=== PATIENT | male | born 1945 | race Caucasian/White ===

== ENCOUNTER → 2018-07-29 | Outpatient (CLI) | payer MEDICARE ==
[~2018-07-29] MED LIST: Aspir 8181 MG; Crestor40 MG; Nexium40 MG; QVAR REDIHALE10.6 G1; UBID10; ZESTORETIC 20-121 EA
[2018-07-29 14:57] LABS: BASOPHILS ABSOLUTE AUTO 0.04 K/mm3 (0.00-0.23); BASOPHILS PERCENT AUTO 1 % (0-2); EOSINOPHILS ABSOLUTE AUTO 0.31 K/mm3 (0.00-0.68); EOSINOPHILS PERCENT AUTO 5 % (0-6); Hematocrit 41.5 % (37.0-53.0); Hemoglobin 14.2 g/dL (13.5-17.5); IMMATURE GRAN ABSOLUTE AUTO 0.02 K/mm3 (0.00-0.10); IMMATURE GRAN PERCENT AUTO 0 % (0-1); LYMPHOCYTES ABSOLUTE AUTO 0.79 K/mm3 (0.84-5.20); LYMPHOCYTES PERCENT AUTO 11 % (21-46); MONOCYTES ABSOLUTE AUTO 0.61 K/mm3 (0.16-1.47); MONOCYTES PERCENT AUTO 9 % (4-13); Mean Corpuscular HGB 32.9 pg (26.0-34.0); Mean Corpuscular HGB Conc 34.2 g/dL (31.5-36.5); Mean Corpuscular Volume 96 fL (80-100); Mean Platelet Volume 9.4 fL (9.1-12.4); NEUTROPHILS ABSOLUTE AUTO 5.19 K/mm3 (1.96-9.15); NEUTROPHILS PERCENT AUTO 74 % (41-73); Platelet Count 110 K/mm3 (150-400); RDW Coefficient Variation 13.2 % (11.7-14.2); RDW Standard Deviation 47.7 fL (35.1-46.3); Red Blood Cell Count 4.31 M/mm3 (4.30-5.90); White Blood Cell Count 6.96 K/mm3 (4.00-11.30)
[2018-07-29 15:12] LABS: Alanine Aminotransfer (ALT/SGP 48 U/L (12-78); Albumin, Blood 3.4 g/dL (3.4-5.0); Albumin/Globulin Ratio 0.8 (0.8-1.8); Alk Phos 123 U/L (40-126); Anion Gap 11 mmol/L (6-16); Aspartate Aminotrans (AST/SGOT 30 U/L (12-37); Blood Urea Nitrogen 22 mg/dL (8-24); Bun/Creatinine Ratio 19.8 (12.0-20.0); CO2, Blood 26 mmol/L (21-32); Calcium, Blood 8.9 mg/dL (8.5-10.1); Chloride, Blood 99 mmol/L (98-108); Creatinine, Blood 1.11 mg/dL (0.60-1.20); Globulin, Blood 4.1 g/dL (2.2-4.0); Glomerular Filtration Rate >60 (60-); Glucose, Blood 162 mg/dL (70-99); Potassium, Blood 4.2 mmol/L (3.5-5.5); Sodium, Blood 136 mmol/L (136-145); Total Protein, Blood 7.5 g/dL (6.4-8.2); Troponin I 0.121 ng/mL (0.000-0.040)
== END ==
LOC: LAB SHORT 14:54 → LAB EV 14:54
PROVIDERS: Emergency Medicine
DX: R07.9 Chest pain, unspecified (principal)
CPT/HCPCS: 80053; 84484; 85025

== ENCOUNTER → 2018-08-08 | Outpatient (CLI) | payer MEDICARE | LOC: LAB EV 11:25 → LAB SHORT 11:25 | DX: R07.9 Chest pain, unspecified (principal) | CPT/HCPCS: 84484 ==

== ENCOUNTER 2021-09-08 09:18 | Day surgery (SDC) | payer MEDICARE ==
[~2021-09-08] VITALS: Ht 175.3 cm; Wt 101.8 kg
[~2021-09-08 09:18] MED LIST changes: +ALBU90OI INH; -Aspir 8181 MG; +Aspir 8181 MG PO; -Crestor40 MG; +Crestor40 MG PO; +FENO54 PO; -Nexium40 MG; +Nexium40 MG PO; -QVAR REDIHALE10.6 G1; +QVAR REDIHALE10.6 G2 INH; +TURMERIC CURCU1 EACH PO; -UBID10; +UBID10 PO; -ZESTORETIC 20-121 EA; +ZESTORETIC 20-121 EA PO; +[UNRECOGNIZED DRUG - OTHER] PO
--- NOTE | 2021-09-08 10:37 | NUR ---
Ambulatory in Day Surgery. History, Chart, Medications and Allergies reviewed before start of procedure. Lungs clear T/O to Auscultation. Patient confirms NPO status and agrees with scheduled surgery. Pre-Op teaching done. Pt verbalizes understanding.
--- NOTE | 2021-09-08 15:55 | NUR ---
PT ARRIVED TO THE ROOM AT APPROXIMATELY 1520 FROM PACU. PT IS ALERT AND ORIENTED. PT DENIES PAIN BUT STILL REPORTS NUMBNESS TO BLE. HE IS STARTING TO WIGGLE HIS TOES WEAKLY. PT IS TOLERATING PO. PT'S S/O AT THE BEDSIDE FOR SUPPORT. R KNEE DRESSING C/D/I. VSS.
--- NOTE | 2021-09-08 17:07 | NUR ---
SHIFT SUMMARY PT IS POD#0 FROM R TKA. PT DENIES NEED FOR PAIN MEDICATION. PAIN MANAGED WITH TYLENOL AND TORADOL. PT IS TOLERATING PO. WAITING FOR PT VOID. PLAN TO GET PT OOB FOR DINNER IF POSSIBLE. WILL CONTINUE TO MONITOR.
--- NOTE | 2021-09-08 19:05 | NUR ---
BLADDER SCAN AND STRAIGHT CATH PT WAS UNABLE TO VOID AFTER 2 ATTEMPTS. BLADDER SCAN SHOWED 478ML IN HIS BLADDER. STRAIGHT CATH EMPTIED 700ML FROM PT'S BLADDER. SCANT BLOOD PRESENT IN CATHETER WHEN IT WAS WITHDRAWN. PT TOLERATED WELL. STERILE TECHNIQUE MAINTAINED AND PT DENIED ALLERGY TO IODINE PRIOR TO STRAIGHT CATH.
--- NOTE | 2021-09-09 04:19 | NUR ---
SHIFT SUMMARY: PT. AOX4, AMBULATES TO THE BATHROOM WITH WALKER & GB ON SBA. R KNEE INCISION WITH ACEWRAP ON, POLAR PACK PLACED. C/O PAIN MEDICATED PER EMAR.NO BLOOD NOTED IN URINE. USED CPAP AT NIGHT, O2 SAT WNL, BIOX AT BEDSIDE.NO ACUTE CHANGES NOTED, WILL CONTINUE TO MONITOR.
[2021-09-09 04:37] LABS: BASOPHILS ABSOLUTE AUTO 0.01 K/mm3 (0.00-0.23); BASOPHILS PERCENT AUTO 0 % (0-2); EOSINOPHILS ABSOLUTE AUTO 0.01 K/mm3 (0.00-0.68); EOSINOPHILS PERCENT AUTO 0 % (0-6); Hematocrit 38.4 % (37.0-53.0); IMMATURE GRAN ABSOLUTE AUTO 0.02 K/mm3 (0.00-0.10); IMMATURE GRAN PERCENT AUTO 0 % (0-1); LYMPHOCYTES ABSOLUTE AUTO 0.76 K/mm3 (0.84-5.20); LYMPHOCYTES PERCENT AUTO 11 % (21-46); MONOCYTES ABSOLUTE AUTO 0.54 K/mm3 (0.16-1.47); MONOCYTES PERCENT AUTO 8 % (4-13); Mean Corpuscular HGB 32.8 pg (26.0-34.0); Mean Corpuscular HGB Conc 33.9 g/dL (31.5-36.5); Mean Corpuscular Volume 97 fL (80-100); Mean Platelet Volume 9.3 fL (9.1-12.4); NEUTROPHILS ABSOLUTE AUTO 5.79 K/mm3 (1.96-9.15); NEUTROPHILS PERCENT AUTO 81 % (41-73); Platelet Count 141 K/mm3 (150-400); RDW Standard Deviation 46.6 fL (35.1-46.3); Red Blood Cell Count 3.96 M/mm3 (4.30-5.90); White Blood Cell Count 7.13 K/mm3 (4.00-11.30)
[2021-09-09 05:03] LABS: Anion Gap 8 mmol/L (6-16); Blood Urea Nitrogen 25 mg/dL (8-24); Bun/Creatinine Ratio 24.8 (12.0-20.0); CO2, Blood 23 mmol/L (21-32); Calcium, Blood 8.8 mg/dL (8.5-10.1); Chloride, Blood 106 mmol/L (98-108); Creatinine, Blood 1.01 mg/dL (0.60-1.20); Glomerular Filtration Rate >60 (60-); Glucose, Blood 161 mg/dL (70-99); Sodium, Blood 137 mmol/L (136-145)
[2021-09-09] MEDS ORDERED: Percocet 5-3251 EACH PO (09:52)
--- NOTE | 2021-09-09 11:26 | NUR ---
DISCHARGE SUMMARY PT POD #1 FOR R TOTAL KNEE. PT C/O MINIMAL PAIN AND WAS CLEARED BY PHYSICAL THERAPY FOR DISCHARGE. TREATED PER EMR PRIOR TO LEAVING DUE TO HAVING TO HAVE HIS PAIN MEDICATION PRESCRIPTION FILLED. AQUACEL DRESSING IN PLACE OVER GLUE DRESSING DUE TO DRAINAGE. DRESSING CDI. PT EXHIBITED KNOWLEDGE RELATED TO DISCHARGE INSTRUCTIONS.
== END 2021-09-09 11:11 | disposition home or self-care (01) ==
LOC: ORSCMMR 09:18 → ORD 11:00 → ORSCMMR 11:00 → SURS 15:29 → ORSCMMR 09-09 11:11
PROVIDERS: Orthopaedic Surgery
PROC: 0SRC0JA Replacement of Right Knee Joint with Synthetic Substitute, Uncemented, Open Approach (ICD-10-PCS; principal; 2021-09-08 11:00)
DX: M17.0 Bilateral primary osteoarthritis of knee (principal); I10 Essential (primary) hypertension; Z87.891 Personal history of nicotine dependence; G47.33 Obstructive sleep apnea (adult) (pediatric); Z79.899 Other long term (current) drug therapy; Z79.82 Long term (current) use of aspirin
CPT/HCPCS: 36415; 73560-RT; 80048; 85025; 94640; 94664; 94762; 97110; 97116; 97162; A9270; C1776; J0171; J0690; J0735; J1100; J1885; J2250; J2370; J2704; J2795; J3010; J7120

== ENCOUNTER 2022-05-11 08:01 | Day surgery (SDC) | payer MEDICARE ==
[~2022-05-11] VITALS: Ht 172.7 cm; Wt 99.1 kg
[~2022-05-11 08:01] MED LIST changes: +Percocet 5-3251 EACH PO
--- NOTE | 2022-05-11 11:01 | NUR ---
Ambulatory in Day Surgery. Patient confirms NPO status and agrees with scheduled surgery. Pre-Op teaching done. Pt verbalizes understanding. Lungs clear T/O to Auscultation. Patient reports completing Chlorhexadine shower X1 prior to admission to hospital.
--- NOTE | 2022-05-11 11:07 | NUR ---
SMALL CLUSTER OF PINPOINT SCABS/ABRASION ON LEFT PEÑALOZA; PT DENIES PAIN OR DISCOMFORT. SURGEON NOTIFIED & STATES OKAY TO PROCEED.
--- NOTE | 2022-05-11 15:25 | NUR ---
ARRIVAL TO UNIT PT ARRIVED TO UNIT FROM PACU. LEFT HIP DRESSING CDI, POLAR KEVIN IN PLACE. [id number], PT REPORTS HAVING LARGE APPETITE AT THIS TIME. GAVE WATER AND A SANDWICH, PT TOLERATING WELL. HE CONTINUES TO DENY SENSATION IN HIS LEGS AND IS UNABLE TO WIGGLE HIS TOES. LUNGS CLEAR THROUGHOUT, CALL LIGHT IN REACH.
--- NOTE | 2022-05-11 19:04 | NUR ---
SHIFT SUMMARY S/P L TKA PT HAS BEEN UP AND IN HIS CHAIR FOR MOST OF SHIFT. SENSATION RETURNED. HE HAS VOIDED, TOLERATING PO WELL. CALLS APPROPRIATLY. DRESSING REMAINS CDI. POLAR KEVIN IN PLACE. PLAN IS TO WORK WITH THERAPY AND POSSIBLY DISCHARGE TOMORROW.
[2022-05-12 04:28] LABS: BASOPHILS ABSOLUTE AUTO 0.02 K/mm3 (0.00-0.23); BASOPHILS PERCENT AUTO 0 % (0-2); EOSINOPHILS ABSOLUTE AUTO 0.02 K/mm3 (0.00-0.68); EOSINOPHILS PERCENT AUTO 0 % (0-6); Hematocrit 41.1 % (37.0-53.0); IMMATURE GRAN ABSOLUTE AUTO 0.02 K/mm3 (0.00-0.10); IMMATURE GRAN PERCENT AUTO 0 % (0-1); LYMPHOCYTES ABSOLUTE AUTO 1.01 K/mm3 (0.84-5.20); LYMPHOCYTES PERCENT AUTO 12 % (21-46); MONOCYTES ABSOLUTE AUTO 0.63 K/mm3 (0.16-1.47); MONOCYTES PERCENT AUTO 7 % (4-13); Mean Corpuscular HGB 32.6 pg (26.0-34.0); Mean Corpuscular HGB Conc 34.1 g/dL (31.5-36.5); Mean Corpuscular Volume 96 fL (80-100); Mean Platelet Volume 9.3 fL (9.1-12.4); NEUTROPHILS ABSOLUTE AUTO 6.95 K/mm3 (1.96-9.15); NEUTROPHILS PERCENT AUTO 80 % (41-73); Platelet Count 141 K/mm3 (150-400); RDW Standard Deviation 45.5 fL (35.1-46.3); White Blood Cell Count 8.65 K/mm3 (4.00-11.30)
--- NOTE | 2022-05-12 04:44 | NUR ---
SUMMARY NO NEW ISSUES NOTED. PT PAIN MANAGED WELL. PT HAS BEEN AMBULATORY AND VOIDING WELL. PT HAS BEEN SLEEPING WELL AND BREATHING EASY. CALL LIGHT IN REACH.
[2022-05-12 04:45] LABS: Bun/Creatinine Ratio 31.4 (12.0-20.0); Calcium, Blood 8.6 mg/dL (8.5-10.1); Creatinine, Blood 0.83 mg/dL (0.60-1.20); Potassium, Blood 4.4 mmol/L (3.5-5.5)
[2022-05-12] MEDS ORDERED: Percocet 5-3251 EACH PO (08:40)
--- NOTE | 2022-05-12 10:32 | NUR ---
DISCHARGE SUMMARY PATIENT ALERT AND ORIENTED. INDEPENDENT IN ROOM AND HALLS WITH FWW. TOLERATING REGULAR DIET AND LIQUIDS. PAIN CONTROLLED WITH PO PAIN MEDS. R KNEE INCISION AND AQUACEL WNL. CLEARED BY PHYSICAL THERAPY FOR DISCHARGE. DISCHARGE INSTRUCTIONS GIVEN ON NEW MEDS, ACTIVITY, INCISION CARE, AND FOLLOW UP APPTS. PATIENT LEFT UNIT AT 0950 VIA WHEELCHAIR WITH SPOUSE FOR HOME.
== END 2022-05-12 10:07 | disposition home or self-care (01) ==
LOC: ORSCMMR 08:01 → ORD 10:00 → SURS 14:31 → ORSCMMR 05-12 10:07
PROVIDERS: Orthopaedic Surgery
PROC: 0SRD0JA Replacement of Left Knee Joint with Synthetic Substitute, Uncemented, Open Approach (ICD-10-PCS; principal; 2022-05-11 10:00)
DX: M17.12 Unilateral primary osteoarthritis, left knee (principal); I10 Essential (primary) hypertension; G47.33 Obstructive sleep apnea (adult) (pediatric); I25.10 Atherosclerotic heart disease of native coronary artery without angina pectoris; K21.9 Gastro-esophageal reflux disease without esophagitis; Z79.899 Other long term (current) drug therapy; Z79.82 Long term (current) use of aspirin
CPT/HCPCS: 36415; 73560-LT; 80048; 85025; 94640; 94660; 94664; 94762; 97110; 97116; 97162; A9270; C1776; J0171; J0690; J0735; J1100; J1885; J2250; J2405; J2704; J2795; J3010; J7120